=== PATIENT | female | born 1945 | race Caucasian/White ===

== ENCOUNTER → 2016-06-12 | Outpatient (CLI) | payer MEDICARE, OTHER ==
[2016-06-12 13:15] LABS: ABSOLUTE EOSINOPHILS # (AUTO) 0.1 10^3/uL (0.0-0.6); ABSOLUTE LYMPHOCYTES (AUTO) 1.9 10^3/uL (0.5-4.7); ABSOLUTE MONOCYTES (AUTO) 0.5 10^3/uL (0.1-1.4); ABSOLUTE NEUT (AUTO) 3.6 10^3/uL (1.7-8.2); BASOPHILS % (AUTO) 0.7 % (0-2); EOSINOPHILS % (AUTO) 2.3 % (0-6); HEMATOCRIT 38.5 % (36.0-47.0); HEMOGLOBIN 12.4 g/dL (12.0-15.5); HGB HCT DIFFERENCE -1.3; LYMPHOCYTES % (AUTO) 31.5 % (13-45); MEAN CORPUSCULAR HEMOGLOBIN 26.6 pg (27.0-33.4); MEAN CORPUSCULAR HGB CONC 32.2 g/dL (32.0-36.0); MEAN CORPUSCULAR VOLUME 83 fl (80-97); MONOCYTES % (AUTO) 7.5 % (3-13); RED BLOOD COUNT 4.66 10^6/uL (3.72-5.28); RED CELL DISTRIBUTION WIDTH 16.1 % (11.5-14.0); WHITE BLOOD COUNT 6.2 10^3/uL (4.0-10.5)
[2016-06-12 13:36] LABS: ALANINE AMINOTRANSFERASE 26 U/L (9-52); ALBUMIN 4.1 g/dL (3.5-5.0); ALKALINE PHOSPHATASE 94 U/L (38-126); ANION GAP 14 (5-19); ASPARTATE AMINO TRANSFERASE 18 U/L (14-36); BILIRUBIN,DIRECT 0.2 mg/dL (0.0-0.4); BILIRUBIN,TOTAL 0.5 mg/dL (0.2-1.3); BLOOD UREA NITROGEN 14 mg/dL (7-20); CALCIUM 7.6 mg/dL (8.4-10.2); CARBON DIOXIDE 26 mmol/L (22-30); CHLORIDE 102 mmol/L (98-107); CREATININE RESULT 0.69 mg/dL (0.52-1.25); GLUCOSE 95 mg/dL (75-110); POTASSIUM 4.4 mmol/L (3.6-5.0); TOTAL PROTEIN 6.7 g/dL (6.3-8.2)
--- NOTE | 2016-06-12 19:02 | EKG REPORT ---
SEVERITY:- BORDERLINE ECG - SINUS RHYTHM BORDERLINE T ABNORMALITIES, ANT-LAT LEADS : Confirmed by: Rasheed Reilly MD 12-Jun-2016 19:01:30
== END ==
LOC: OD 11:54
PROVIDERS: ATTEND Physician Assistant
DX: Z11.2 Encounter for screening for other bacterial diseases (principal); Z01.810 Encounter for preprocedural cardiovascular examination
CPT/HCPCS: 36415; 80053; 85025; 87070; 93005; 93010

== ENCOUNTER → 2016-09-18 | Outpatient (CLI) | payer MEDICARE, OTHER ==
[2016-09-18 13:49] LABS: ABSOLUTE EOSINOPHILS # (AUTO) 0.2 10^3/uL (0.0-0.6); ABSOLUTE LYMPHOCYTES (AUTO) 2.2 10^3/uL (0.5-4.7); ABSOLUTE MONOCYTES (AUTO) 0.5 10^3/uL (0.1-1.4); ABSOLUTE NEUT (AUTO) 4.4 10^3/uL (1.7-8.2); BASOPHILS % (AUTO) 0.5 % (0-2); EOSINOPHILS % (AUTO) 2.6 % (0-6); HEMATOCRIT 38.4 % (36.0-47.0); HEMOGLOBIN 12.4 g/dL (12.0-15.5); HGB HCT DIFFERENCE -1.2; LYMPHOCYTES % (AUTO) 30.1 % (13-45); MEAN CORPUSCULAR HEMOGLOBIN 28.1 pg (27.0-33.4); MEAN CORPUSCULAR HGB CONC 32.2 g/dL (32.0-36.0); MEAN CORPUSCULAR VOLUME 87 fl (80-97); MONOCYTES % (AUTO) 7.2 % (3-13); RED CELL DISTRIBUTION WIDTH 16.1 % (11.5-14.0); SEGMENTED NEUTROPHILS % (AUTO) 59.6 % (42-78); WHITE BLOOD COUNT 7.4 10^3/uL (4.0-10.5)
[2016-09-18 14:26] LABS: ERYTHROCYTE SEDIMENTATION RATE 14 mm/hr (0-30)
== END ==
LOC: OD 12:18
PROVIDERS: ATTEND Physician Assistant
DX: M17.11 Unilateral primary osteoarthritis, right knee (principal); R21 Rash and other nonspecific skin eruption; R50.9 Fever, unspecified
CPT/HCPCS: 36415; 85025; 85652; 86038; 86140; 86430

== ENCOUNTER 2017-07-23 11:38 | Emergency (ER) | payer MEDICARE, OTHER ==
[2017-07-23] MEDS ORDERED: ASPIRIN 81 MG TABLET, CHEWABLE PO ONE (13:05)
--- NOTE | 2017-07-23 13:07 | ER Document Report ---
ED Medical Screen (RME) - General Chief Complaint: Chest Pain Stated Complaint: CHEST PAIN/TROUBLE BREATHING Time Seen by Provider: 07/23/17 13:01 TRAVEL OUTSIDE OF THE [place] IN LAST 30 DAYS: No - HPI Notes: 07/23/17 13:06 Chest heaviness and shortness of breath for 6 weeks sent to the ER due to shortness of breath seen by orthopedic doctor giving her her knee injection today patient states she recently admitted to ICU in [facility] in February discharged in March for "sepsis" 07/23/17 13:07 Patient states she would not come to the ER unless the doctor told her to. - Related Data Allergies/Adverse Reactions: No Known Allergies Allergy (Verified 07/23/17 13:00) Past Medical History - Past Medical History Cardiac Medical History: Reports: Hx Hypercholesterolemia, Hx Hypertension Neurological Medical History: Reports: Hx Migraine Endocrine Medical History: Reports: Hx Diabetes Mellitus Type 1 Psychiatric Medical History: Reports: Hx Anxiety Review of Systems - Review of Systems Cardiovascular: Chest pain Respiratory: Cough, Short of breath Physical Exam - Vital signs Vitals: Temp Pulse Resp BP Pulse Ox 97.7 F 73 16 129/63 H 95 07/23/17 12:02 07/23/17 12:02 07/23/17 12:02 07/23/17 12:02 07/23/17 12:02 - General General appearance: Appears well - Respiratory Respiratory status: No respiratory distress Chest status: Nontender Breath sounds: Normal Chest palpation: Normal Course - Vital Signs Vital signs: Temp Pulse Resp BP Pulse Ox 97.7 F 73 16 129/63 H 95 07/23/17 12:02 07/23/17 12:02 07/23/17 12:02 07/23/17 12:02 07/23/17 12:02 Doctor's Discharge - Discharge Referrals: BERNIE MONTE PA [Primary Care Provider] - Follow up as needed
--- NOTE | 2017-07-23 13:25 | EKG REPORT ---
SEVERITY:- ABNORMAL ECG - SINUS RHYTHM NONSPECIFIC T ABNORMALITIES, ANT-LAT LEADS : Confirmed by: Rasheed Reilly MD 23-Jul-2017 13:24:28
[2017-07-23 14:36] LABS: ABSOLUTE BASOPHILS # (AUTO) 0.1 10^3/uL (0.0-0.2); ABSOLUTE EOSINOPHILS # (AUTO) 0.1 10^3/uL (0.0-0.6); ABSOLUTE LYMPHOCYTES (AUTO) 2.8 10^3/uL (0.5-4.7); ABSOLUTE MONOCYTES (AUTO) 0.4 10^3/uL (0.1-1.4); ABSOLUTE NEUT (AUTO) 3.5 10^3/uL (1.7-8.2); BASOPHILS % (AUTO) 0.8 % (0-2); EOSINOPHILS % (AUTO) 1.4 % (0-6); HEMATOCRIT 36.7 % (36.0-47.0); HEMOGLOBIN 11.3 g/dL (12.0-15.5); LYMPHOCYTES % (AUTO) 40.7 % (13-45); MEAN CORPUSCULAR HEMOGLOBIN 23.2 pg (27.0-33.4); MEAN CORPUSCULAR HGB CONC 30.8 g/dL (32.0-36.0); MEAN CORPUSCULAR VOLUME 75 fl (80-97); MONOCYTES % (AUTO) 6.4 % (3-13); PLATELET COUNT 305 10^3/uL (150-450); RED BLOOD COUNT 4.86 10^6/uL (3.72-5.28); RED CELL DISTRIBUTION WIDTH 18.1 % (11.5-14.0); SEGMENTED NEUTROPHILS % (AUTO) 50.7 % (42-78); TOTAL CELLS COUNTED % (AUTO) 100 %; WHITE BLOOD COUNT 6.8 10^3/uL (4.0-10.5)
--- NOTE | 2017-07-23 14:40 | RADIOLOGY REPORT (SQ) ---
EXAM DESCRIPTION: CHEST 2 VIEWS COMPLETED DATE/TIME: 07/23/2017 2:23 pm REASON FOR STUDY: sob COMPARISON: 09/04/2014 EXAM PARAMETERS: NUMBER OF VIEWS: two views TECHNIQUE: Digital Frontal and Lateral radiographic views of the chest acquired. RADIATION DOSE: NA LIMITATIONS: Shallow inspiration FINDINGS: LUNGS AND PLEURA: Lungs appear clear except for linear marking right lung base. MEDIASTINUM AND HILAR STRUCTURES: No masses or contour abnormalities. HEART AND VASCULAR STRUCTURES: Heart normal size. No evidence for failure. BONES: Scoliosis. HARDWARE: None in the chest. OTHER: : Distention noted in the upper abdomen. IMPRESSION: Linear atelectasis right lung base. COMMENT: The colon appears distended. TECHNICAL DOCUMENTATION: JOB ID: [id number] [employer]- All Rights Reserved Reading location - IP/workstation name: [email or web address]
[2017-07-23 14:50] LABS: ALANINE AMINOTRANSFERASE 24 U/L (9-52); ALBUMIN 4.4 g/dL (3.5-5.0); ALKALINE PHOSPHATASE 68 U/L (38-126); ANION GAP 14 (5-19); ASPARTATE AMINO TRANSFERASE 26 U/L (14-36); BILIRUBIN,DIRECT 0.4 mg/dL (0.0-0.4); BILIRUBIN,TOTAL 0.5 mg/dL (0.2-1.3); BLOOD UREA NITROGEN 21 mg/dL (7-20); CALCIUM 9.6 mg/dL (8.4-10.2); CARBON DIOXIDE 22 mmol/L (22-30); CHLORIDE 111 mmol/L (98-107); CREATINE KINASE 55 U/L (30-135); GLUCOSE 93 mg/dL (75-110); POTASSIUM 4.7 mmol/L (3.6-5.0); SODIUM 147.4 mmol/L (137-145); TOTAL PROTEIN 7.6 g/dL (6.3-8.2)
--- NOTE | 2017-07-23 16:46 | ER Document Report ---
ED General <NINOSKA SHORE - Last Filed: 07/23/17 19:45> - General Mode of Arrival: Ambulatory Information source: Patient TRAVEL OUTSIDE OF THE [place] IN LAST 30 DAYS: No <RANDY LE - Last Filed: 07/23/17 20:08> - General Chief Complaint: Chest Pain Stated Complaint: CHEST PAIN/TROUBLE BREATHING Time Seen by Provider: 07/23/17 13:01 Notes: Patient is a 72 year old female presenting to the emergency department complaining of chest pain and shortness of breath onset a few months ago. Patient states she was at her orthopedics office receiving steroids injections in her knees when her physician noted she appeared short of breath and sent her to the emergency department. Patient describes her chest pain as intermittent chest heaviness. Patient states she would not have come to the emergency department if her physician had not instructed her to do so. Patient's PCP is Dr. Pastor. Patient reports being in an induced coma at [facility] in [place], [place] in February 2017. Patient states she was induced due to having long lasting fevers after becoming septic from an UTI. She further states her right fourth toe was amputated due to poor circulation while in the coma. (RANDY LE) - Related Data Allergies/Adverse Reactions: No Known Allergies Allergy (Verified 07/23/17 13:00) Past Medical History - General Information source: Patient - Social History Smoking Status: Never Smoker Chew tobacco use (# tins/day): No Frequency of alcohol use: Rare Drug Abuse: None Family History: Reviewed & Not Pertinent Patient has suicidal ideation: No Patient has homicidal ideation: No - Past Medical History Cardiac Medical History: Reports: Hx Hypercholesterolemia, Hx Hypertension Neurological Medical History: Reports: Hx Migraine Endocrine Medical History: Reports: Hx Diabetes Mellitus Type 1 Psychiatric Medical History: Reports: Hx Anxiety Past Surgical History: Reports: Other - Right 4th toe amputation <RANDY LE - Last Filed: 07/23/17 20:08> Review of Systems - Review of Systems Constitutional: No symptoms reported EENT: No symptoms reported Cardiovascular: See HPI, Chest pain Respiratory: See HPI, Short of breath Gastrointestinal: No symptoms reported Genitourinary: No symptoms reported Female Genitourinary: No symptoms reported Musculoskeletal: No symptoms reported Skin: No symptoms reported Hematologic/Lymphatic: No symptoms reported Neurological/Psychological: No symptoms reported -: Yes All other systems reviewed and negative <RANDY LE - Last Filed: 07/23/17 20:08> Physical Exam - General General appearance: Appears well, Alert In distress: None - HEENT Head: Normocephalic, Atraumatic Eyes: Normal Conjunctiva: Normal Extraocular movements intact: Yes Pupils: PERRL Mucous membranes: Normal Neck: Normal. 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 Patient denies any new symptoms or changes regarding this, so I did not make her take off her shoes. - Neurological Neuro grossly intact: Yes Cognition: Normal Orientation: AAOx4 [place] Coma Scale Eye Opening: Spontaneous [place] Coma Scale Verbal: Oriented [place] Coma Scale Motor: Obeys Commands [place] Coma Scale Total: 15 Speech: Normal - Psychological Associated symptoms: Normal affect, Normal mood - Skin Skin Temperature: Warm Skin Moisture: Dry Skin Color: Normal <RANDY LE - Last Filed: 07/23/17 20:08> - Vital signs Vitals: Temp Pulse Resp BP Pulse Ox 97.7 F 73 16 129/63 H 95 07/23/17 12:02 07/23/17 12:02 07/23/17 12:02 07/23/17 12:02 07/23/17 12:02 Course - Laboratory Result Diagrams: 07/23/17 14:18 07/23/17 14:18 - Diagnostic Test Radiology reviewed: Reports reviewed - Chest x-ray shows some right basilar atelectasis, and distended colon. - EKG Interpretation by Id EKG shows normal: Sinus rhythm, [place], Intervals, QRS Complexes. abnormal: ST-T Waves - Nonspecific anterolateral T abnormalities Rate: Normal - 72 Rhythm: NSR <NINOSKA SHORE - Last Filed: 07/23/17 19:45> - Laboratory Result Diagrams: 07/23/17 14:18 07/23/17 14:18 <RANDY LE - Last Filed: 07/23/17 20:08> - Vital Signs Vital signs: Temp Pulse Resp BP Pulse Ox 97.7 F 73 16 115/65 98 07/23/17 12:02 07/23/17 12:02 07/23/17 19:59 07/23/17 19:59 07/23/17 19:59 - Laboratory Laboratory results interpreted by me: 07/23/17 07/23/17 14:18 14:18 Hgb 11.3 L MCV 75 L MCH 23.2 L MCHC 30.8 L RDW 18.1 H Sodium 147.4 H Chloride 111 H BUN 21 H Est GFR (Non-Af Amer) 52 L Discharge <NINOSKA SHORE - Last Filed: 07/23/17 19:45> <RANDY LE - Last Filed: 07/23/17 20:08> - Discharge Clinical Impression: Dyspnea Qualifiers: Dyspnea type: unspecified Qualified Code(s): R06.00 - Dyspnea, unspecified Condition: Stable Disposition: HOME, SELF-CARE Additional Instructions: Dyspnea, Nonspecific: You were evaluated for shortness of breath, or dyspnea. Dyspnea has many causes, and some are more serious than others. Sometimes it's impossible to diagnose the cause of dyspnea with the tests that are available on an emergency basis. Based on our evaluation today, you do not need hospitalization now. We found no evidence of pneumonia, collapsed lung, blood clots in the lung, tumors , or heart failure. Causes of non-specific dyspnea can include asthma or bronchospasm, hyperventilation, emotional distress, heart disease, emphysema, fibrosis of the lung, and stiffness of the chest wall. In healthy individuals with a single episode, it's sometimes reasonable to do nothing but wait to see if the problem occurs again. Additional tests used to evaluate dyspnea can include cardiac stress testing, echocardiography, pulmonary function testing, CAT scan of the chest, bronchoscopy or pulmonary biopsy. Return if shortness of breath persists or worsens, or if you develop chest pain, fever, cough, confusion, or fainting. Referrals: BERNIE MONTE PA [NO LOCAL MD] - Follow up as needed Scribe Attestation: 07/23/17 18:14 I personally performed the services described in the documentation, reviewed and edited the documentation which was dictated to the scribe in my presence, and it accurately records my words and actions. (NINOSKA SHORE) Scribe Documentation - Scribe Written by Reynold:: Reynold Ramsey, 07/23/2017 16:59 acting as scribe for :: Ambar <RANDY LE - Last Filed: 07/23/17 20:08>
[2017-07-23 16:58] LABS: NT PRO BNP 109 pg/mL (5-900)
[2017-07-23 16:59] LABS: TROPONIN I < 0.012 ng/mL
[2017-07-23 20:05] VITALS: BP 115/65
== END 2017-07-23 20:05 | disposition home or self-care (01) ==
LOC: ER 11:38
DX: R06.00 Dyspnea, unspecified (principal); R07.9 Chest pain, unspecified; I10 Essential (primary) hypertension; E10.9 Type 1 diabetes mellitus without complications; Z89.422 Acquired absence of other left toe(s)
CPT/HCPCS: 93005; 99285; 36415; 82553; 82550; 85025; 80053; 84484; 83880; 71046; 93010; A9270